=== PATIENT | female | born 1985 | race Caucasian/White ===

== ENCOUNTER 2017-04-20 23:52 | Inpatient (IN) | payer OTHER ==
[2017-04-21] MEDS ORDERED: Sodium Chloride 0.9% 10 ML Syringe FLUSH PRN (00:48)
[2017-04-21] MEDS ORDERED: Nalbuphine 20 MG/1 ML Amp IVPUSH PRN (00:48)
[2017-04-21] MEDS ORDERED: Ondansetron 4 MG/2 ML SDV IVPUSH PRN (00:48)
[2017-04-21] MEDS ORDERED: Calcium Carbonate 500 MG Tab.Chew PO PRN (00:48)
[2017-04-21] MEDS ORDERED: Lactated Ringers 1,000 ML IV SCH (01:00)
[2017-04-21] MEDS ORDERED: Oxytocin/Lactated Ringers 10 UNIT/1,000 ML BAG IV SCH (01:00)
--- NOTE | 2017-04-21 04:07 | PCM.LDHP ---
L&D History of Present Illness - General Date of Service: 04/21/17 Admit Problem/Dx: Patient Status Order with Admit Dx/Problem 04/21/17 00:48 Patient Status [ADT] Routine Admission Diagnosis/Problem Admission Diagnosis/Problem Labor established 04/21/17 03:54 Swapnil is a 32-year-old 4 para 3003 white female who is admitted in active labor. Her SIERRA is 05/05/2017 placing her now at 38-0/7 weeks gestational age as dated by a last menstrual period and supported by at least 2 ultrasounds. heart tones are reassuring. Patient is arlyn approximately every 3-4 minutes moderate to intense. [employer] history: 4 para 3003 with 3 vaginal deliveries largest baby being 7 lbs. 11 oz. On,. Pregnancies in the past. The sprints is relatively uncomplicated. Patient seen early at 8 weeks and 0 days. Normal fundal height growth and has reported weight gain of 30 pounds over the . labs: Not available at this time. She is Rh+. Group B strep screen was positive and patient is allergic penicillin. Sensitivity testing shows patient to be resistant to clindamycin and therefore she has been given vancomycin prophylactically per protocol. Allergies: penicillins Medications: vitamins Past medical history: Normocephalic and said delivery 3 largest baby 7 lbs. 11 oz. Past surgical history: With teeth extraction Family history: Parents are alive. Mother suffers from asthma as does her 2 sisters. Diabetes and 1 brother heart disease in her father and paternal grandmother. Leukemia in her paternal grandmother. Spina bifida in her sister. Social history patient is : is Randy. She does not use any significant muscle alcohol, drugs or tobacco. She lives in the [facility]. Review of systems: HEENT-negative Skin-negative Respiratory-negative Cardiovascular-negative breastsnegative GI-0 gu-changes associated with muscluoskel-significant edema noted Neurologic-negative. Physical exam: In general patient is well-developed, well-nourished, pleasant female stated age and only minimal distress secondary to her contractions. She started contractions very well. Skin is warm and dry without lesions. HEENT, neck and back are generally within normal limits. Cardiovascular exam shows regular rate and rhythm without murmurs. Lungs are clear with good breath sounds in all lung wang. Breast exam is deferred. Abdomen is protuberant is fundal height consistent with term . Cervical exam per nursing evaluation prior to this history and physical shows cervix 7 cm, 100% effaced, 0 station. Patient had spontaneous rupture membranes at 2300 hrs. yesterday. Extremities and neurological exam are grossly within normal limits 's - Related Data Allergies/Adverse Reactions: Allergies Allergy/AdvReac Type Severity Reaction Status Date / Time Penicillins Allergy Hives Verified 11/24/14 18:25 Home Medications: Home Meds Vit No.130/Iron/FA [ Tablet] 1 each PO DAILY 11/24/14 [History] Benzocaine/Menthol [Dermoplast Pain Relief [place]] 1 applic TOP ASDIRECTED PRN # 30 canister 11/26/14 [Rx] Ibuprofen [Motrin] 600 mg PO Q6H PRN #30 tablet 11/26/14 [Rx] Lanolin [Lansinoh HPA] 1 applic TOP ASDIRECTED PRN #20 crm 11/26/14 [Rx] Witch Wendy [Tucks] 1 pad TOP ASDIRECTED PRN #30 pad 11/26/14 [Rx] Past Medical History HEENT History: Reports: Other (See Below) Other HEENT History: Wears glasses Gastrointestinal History: Reports: GERD Other Gastrointestinal History: Occasional GERD with ; not treated with meds Genitourinary History: Reports: None [employer] History: Reports: - Infectious Disease History Infectious Disease History: Reports: None - Past Surgical History HEENT Surgical History: Reports: Oral Surgery Other HEENT Surgeries/Procedures: [place] teeth removed in 2007 Female Surgical History: Reports: None Social & Family History - Family History Family Medical History: Noncontributory - Tobacco Use Smoking Status *Q: Never Smoker Second Hand Smoke Exposure: No - Caffeine Use Caffeine Use: Reports: Coffee - Alcohol Use Days Per Week of Alcohol Use: 0 - Recreational Drug Use Recreational Drug Use: No H&P Review of Systems - Review of Systems: Review Of Systems: See Below L&D Exam - Exam Exam: See Below - Vital Signs Vital Signs: Last Vital Signs Temp 37.3 C 04/21/17 00:48 Pulse 95 04/21/17 00:48 Resp 12 04/21/17 00:48 BP 129/73 04/21/17 00:48 Pulse Ox 99 04/21/17 00:48 Weight: 68.039 kg - Patient Data Lab Results Last 24 hrs: Laboratory Results - last 24 hr 04/21/17 04/21/17 04/21/17 Range/Units 00:13 01:05 01:05 WBC 13.24 H (3.98-10.04) K/mm3 RBC 3.87 L (3.98-5.22) M/mm3 Hgb 12.7 (11.2-15.7) gm/L Hct 35.9 (34.1-44.9) % MCV 92.8 (79.4-94.8) fl MCH 32.8 H (25.6-32.2) pg MCHC 35.4 (32.2-35.5) g/dl RDW Std Deviation 41.4 (36.4-46.3) fL Plt Count 155 L (182-369) K/mm3 MPV 9.2 L (9.4-12.3) fl Neut % (Auto) 77.5 H (34.0-71.1) % Lymph % (Auto) 15.0 L (19.3-51.7) % [place] % (Auto) 6.6 (4.7-12.5) % Eos % (Auto) 0.6 L (0.7-5.8) Baso % (Auto) 0.1 (0.1-1.2) % Neut # (Auto) 10.27 H (1.56-6.13) K/mm3 Lymph # (Auto) 1.99 (1.18-3.74) K/mm3 [place] # (Auto) 0.87 H (0.24-0.36) K/mm3 Eos # (Auto) 0.08 (0.04-0.36) K/mm3 Baso # (Auto) 0.01 (0.01-0.08) K/mm3 Membrane Rupture Positive H Blood Type O POSITIVE Gel Antibody Screen Negative Result Diagrams: 04/21/17 01:05 Problem List Initiated/Reviewed/Updated: Yes Orders Last 24hrs: Active Orders 24 hr Category Date Time Status Patient Status [ADT] Routine ADT 04/21/17 00:48 Active Activity as Tolerated [RC] PFP Care 04/21/17 00:48 Active Communication Order [RC] ASDIRECTED Care 04/21/17 00:48 Active Notify Provider [RC] PFP Care 04/21/17 00:48 Active Notify Provider [RC] PRN Care 04/21/17 00:48 Active Peripheral IV Care [RC] . DIRECTED Care 04/21/17 00:48 Active Vital Signs [RC] PER UNIT ROUTINE Care 04/21/17 00:48 Active PATIENT RETYPE [BBK] Routine Lab 04/21/17 01:05 Results TYPE AND SCREEN [BBK] Routine Lab 04/21/17 01:05 Results Calcium Carbonate [Tums] Med 04/21/17 00:48 Active 1,000 mg PO Q2H PRN Lactated Ringers [Ringers, Lactated] 1,000 ml Med 04/21/17 01:00 Active IV ASDIRECTED Nalbuphine [Nubain] Med 04/21/17 00:48 Active 10 mg IVPUSH Q2H PRN Ondansetron [Zofran] Med 04/21/17 00:48 Active 4 mg IVPUSH Q4H PRN Oxytocin/Lactated Ringers [Pitocin in LR 10 Units/1,000 Med 04/21/17 01:00 Active ML] 10 unit in 1,000 ml IV .CONTINUOUS Sodium Chloride 0.9% [Saline Flush] Med 04/21/17 00:48 Active 10 ml FLUSH ASDIRECTED PRN Vancomycin [Vancocin] 1 gm Med 04/21/17 01:00 Active Sodium Chloride 0.9% [Normal Saline] 250 ml IV Q12H Electronic Heart Tones Ext w TOCO [WOMSER] Oth 04/21/17 00:48 Ordered Routine Electronic Heart Tones Internal [WOMSER] Per Unit Oth 04/21/17 00:48 Ordered Routine Peripheral IV Insertion Adult [OM.PC] Routine Oth 04/21/17 00:48 Ordered Resuscitation Status Routine Resus Stat 04/21/17 00:48 Ordered Medication Orders Calcium Carbonate/Glycine (Tums) 1,000 mg PO Q2H PRN PRN Reason: Indigestion Last Admin: 04/21/17 01:39 Dose: 500 mg Lactated Ringer's (Ringers, Lactated) 1,000 mls @ 100 mls/hr IV ASDIRECTED FREDERICK Last Admin: 04/21/17 01:10 Dose: 100 mls/hr Oxytocin/Lactated Ringer's (Pitocin In Lr 10 Units/1,000 Ml) 10 unit in 1,000 mls @ 500 mls/hr IV .CONTINUOUS [facility]ICK Vancomycin HCl 1 gm/ Sodium (Chloride) 250 mls @ 250 mls/hr IV Q12H [facility] Last Admin: 04/21/17 01:13 Dose: 250 mls/hr Nalbuphine HCl (Nubain) 10 mg IVPUSH Q2H PRN PRN Reason: Pain (moderate 4-6) Ondansetron HCl (Zofran) 4 mg IVPUSH Q4H PRN PRN Reason: Nausea/Vomiting Sodium Chloride (Saline Flush) 10 ml FLUSH ASDIRECTED PRN PRN Reason: Keep Vein Open Assessment/Plan Comment:: Assessment: 1. Term intrauterine at 38-0/7 weeks gestational age in active labor with rapid progress progression of cervical dilation. 2. Group B strep screen positive, patient allergic to penicillins, group B strep in sensitive to clindamycin, vancomycin given per protocol. 3. Patient plans to nurse 4. Patient chooses natural labor and delivery. Plan: 1. Anticipate normal spontaneous vaginal delivery 2. Inform pediatrics of group B strep positive 3. Encourage nursing 4. Routine clinical follow-up .
[2017-04-21] MEDS ORDERED: Witch Hazel Medicated Pads 100/Jar TOP PRN (04:31)
[2017-04-21] MEDS ORDERED: Docusate Sodium 100 MG Cap PO PRN (04:31)
[2017-04-21] MEDS ORDERED: Lanolin 100% Cream 7 GM Tube TOP PRN (04:31)
[2017-04-21] MEDS ORDERED: Acetaminophen 325 MG Tab PO PRN (04:31)
[2017-04-21] MEDS ORDERED: Benzocaine/Menthol 20%-0.5% Spray 56 GM Canister TOP PRN (04:31)
--- NOTE | 2017-04-21 04:32 | PCM.SN ---
- Free Text/Narrative Note: Swapnil 32-year-old 4 now para 4004 white female who was admitted on 2016 at 38-0/7 weeks gestational age in active labor and with spontaneous rupture membranes which resulted in clear amniotic fluid. She rapidly progressed to complete cervical dilation by approximately 0400 hrs. Patient pushed approximately 2 contractions and delivered a viable, [place], male weighing 3250 g, was 20 inches in length and had Apgars of 8 and 9. The baby delivered in an occiput anterior position. Nose and mouth were bulb suctioned and baby was placed on mom's abdomen. The cord was clamped 2 and cut by the father. The placenta delivered spontaneously in a Nelson fashion. It appeared intact, was complete and had a three-vessel cord. Pitocin was administered IV after the delivery of the baby. The perineum was intact and no suturing was required. Estimated blood loss is 100 mL. Patient plans to nurse.
[2017-04-21] MEDS: Ibuprofen 600 MG Tab PO PRN ×2 (04:47→12:31)
[2017-04-21] MEDS: Prenatal Multivitamin with Calcium/Folic Acid/Iron Tab PO SCH (12:35)
[2017-04-22] MEDS: Ibuprofen 600 MG Tab PO PRN (00:32)
[2017-04-22] MEDS: Prenatal Multivitamin with Calcium/Folic Acid/Iron Tab PO SCH (08:56)
[2017-04-22] MEDS ORDERED: Measles, Mumps & Rubella Vaccine 0.5 ML SDV SUBCUT ONE (09:00)
[2017-04-22 10:41] VITALS: BP 107/75
--- NOTE | 2017-04-22 10:44 | PCM.DCSUM1 ---
Discharge Summary - Hospital Course Free Text/Narrative:: Swapnil 32-year-old 4 now para 4004 white female who was admitted on 2016 at 38-0/7 weeks gestational age in active labor and with spontaneous rupture membranes which resulted in clear amniotic fluid. She rapidly progressed to complete cervical dilation by approximately 0400 hrs. Patient pushed approximately 2 contractions and delivered a viable, [place], male infant weighing 3250 g, was 20 inches in length and had Apgars of 8 and 9. The baby delivered in an occiput anterior position. Nose and mouth were bulb suctioned and baby was placed on mom's abdomen. The cord was clamped 2 and cut by the father. The placenta delivered spontaneously in a Nelson fashion. It appeared intact, was complete and had a three-vessel cord. Pitocin was administered IV after the delivery of the baby. The perineum was intact and no suturing was required. Estimated blood loss is 100 mL. Patient plans to nurse. patient is done well. She is voiding without concerns, ambulating well and is nursing without problems. She desires to go home today. Follow-up CBC is within normal limits. . - Discharge Data Discharge Date: 04/22/17 Discharge Disposition: Home, Self-Care 01 Condition: Good - Patient Instructions Diet: Regular Diet as Tolerated (Nursing diet with increased calcium and calories as directed) Activity: As Tolerated (No intercourse or tampons until bleeding resolves) Driving: May Drive Today Showering/Bathing: May Shower (May take a bath) Notify Provider of: Fever, Increased Pain, Swelling and Redness, Nausea and/or Vomiting - Discharge Plan Home Medications: Home Meds Vit No.130/Iron/FA [ Tablet] 1 each PO DAILY 11/24/14 [History] Benzocaine/Menthol [Dermoplast Pain Relief [place]] 1 applic TOP ASDIRECTED PRN # 30 canister 11/26/14 [Rx] Ibuprofen [Motrin] 600 mg PO Q6H PRN #30 tablet 11/26/14 [Rx] Lanolin [Lansinoh HPA] 1 applic TOP ASDIRECTED PRN #20 crm 11/26/14 [Rx] Witch Wendy [Tucks] 1 pad TOP ASDIRECTED PRN #30 pad 11/26/14 [Rx] Referrals: Taylor Howard MD [Physician] - (Return to clinic-Dr. Bojorquez-6 weeks.) - Discharge Summary/Plan Comment DC Time >30 min.: No Discharge Summary/Plan Comment: Discharge instructions: 1. Discharge home 2. Regular, high fiber, nursing diet with increased calcium and calories. 3. Routine discussion held concerning activity and follow-up. 4. Precautions given concern increased pain, bleeding, temperature, signs/ symptoms of DVT/PE. 5. Medications per home medication was printed, discussed with him given to patient. 6. Return to clinic-Dr. Bojorquez-6 weeks Diagnosis: Term -delivered Condition: Good - Patient Data Vitals - Most Recent: Last Vital Signs Temp 36.7 C 04/21/17 12:33 Pulse 74 04/22/17 04:37 Resp 14 04/22/17 04:37 BP 115/60 04/22/17 04:37 Pulse Ox 100 04/22/17 04:37 Weight - Most Recent: 68.039 kg I&O - Last 24 hours: Intake & Output 04/21/17 04/22/17 04/22/17 22:59 06:59 14:59 Intake Total 60 Balance 60 Lab Results - Last 24 hrs: Laboratory Results - last 24 hr 04/22/17 Range/Units 05:25 WBC 10.48 H (3.98-10.04) K/mm3 RBC 3.57 L (3.98-5.22) M/mm3 Hgb 11.9 (11.2-15.7) gm/L Hct 33.7 L (34.1-44.9) % MCV 94.4 (79.4-94.8) fl MCH 33.3 H (25.6-32.2) pg MCHC 35.3 (32.2-35.5) g/dl RDW Std Deviation 41.7 (36.4-46.3) fL Plt Count 168 L (182-369) K/mm3 MPV 9.6 (9.4-12.3) fl Med Orders - Current: Current Medications Acetaminophen (Tylenol) 650 mg PO Q4H PRN PRN Reason: mild pain or fever Benzocaine/Menthol (Dermoplast Pain Relief [place]) 0 gm TOP ASDIRECTED PRN PRN Reason: Perineal Comfort Measure Docusate Sodium (Colace) 100 mg PO BID PRN PRN Reason: Constipation Emollient Ointment (Lansinoh Hpa) 0 gm TOP ASDIRECTED PRN PRN Reason: Sore Nipples Ibuprofen (Motrin) 600 mg PO Q4H PRN PRN Reason: Mild pain or fever Last Admin: 04/22/17 00:32 Dose: 600 mg Prenat Multivit/Dupage/Iron/Folic Ac ( Plus Iron) 1 each PO DAILY [facility]ICK Last Admin: 04/22/17 08:56 Dose: 1 each [place] Wendy (Tucks) 1 pad TOP ASDIRECTED PRN PRN Reason: Hemorrhoid pain Discontinued Medications Calcium Carbonate/Glycine (Tums) 1,000 mg PO Q2H PRN PRN Reason: Indigestion Last Admin: 04/21/17 01:39 Dose: 500 mg Lactated Ringer's (Ringers, Lactated) 1,000 mls @ 100 mls/hr IV ASDIRECTED [place]ICK Last Admin: 04/21/17 01:10 Dose: 100 mls/hr Oxytocin/Lactated Ringer's (Pitocin In Lr 10 Units/1,000 Ml) 10 unit in 1,000 mls @ 500 mls/hr IV .CONTINUOUS [facility] Last Admin: 04/21/17 04:10 Dose: 500 mls/hr Vancomycin HCl 1 gm/ Sodium (Chloride) 250 mls @ 250 mls/hr IV Q12H [facility] Last Admin: 04/21/17 01:13 Dose: 250 mls/hr Measles/Mumps/Rubella Vaccine Live (M-M-R Ii Vaccine) 0.5 ml SUBCUT .ONCE ONE Stop: 04/22/17 09:01 Last Admin: 04/22/17 08:57 Dose: 0.5 ml Nalbuphine HCl (Nubain) 10 mg IVPUSH Q2H PRN PRN Reason: Pain (moderate 4-6) Ondansetron HCl (Zofran) 4 mg IVPUSH Q4H PRN PRN Reason: Nausea/Vomiting Sodium Chloride (Saline Flush) 10 ml FLUSH ASDIRECTED PRN PRN Reason: Keep Vein Open *Q Meaningful Use (DIS) - VTE *Q VTE Criteria *Q: - Stroke *Q Stroke Criteria *Q: - AMI *Q AMI Criteria *Q:
== END 2017-04-22 11:42 | disposition home or self-care (01) | DRG 775 ==
LOC: JD.OB 23:52 → JD.OBCHECK 23:52 → JD.OB 23:53 → JD.OBCHECK 04-21 00:48 → JD.OB 04-21 04:04 → OBSVTOIN 04-21 04:04
PROVIDERS: ADMIT Obstetrics & Gynecology; ATTEND Obstetrics & Gynecology
PROC: 10E0XZZ Delivery of Products of Conception, External Approach (ICD-10-PCS; principal; 2017-04-21)
DX: O99.824 Streptococcus B carrier state complicating childbirth (principal); Z3A.38 38 weeks gestation of pregnancy; Z37.0 Single live birth; Z88.0 Allergy status to penicillin
CPT/HCPCS: 36415; 84112; 85025; 85027; 86850; 86900; 86901; 90707; A9270-GY; J2590; J3370; J7050; J7120